=== PATIENT | male | born 1965 | race Caucasian/White ===

== ENCOUNTER 2024-05-16 20:21 | Emergency (ER) | payer OTHER, SELFPAY ==
[2024-05-16 20:23] VITALS: BP 121/74; PULSE 60; RESP 18; TEMP 36.6; O2SAT 100; BMI 22.6
--- NOTE | 2024-05-16 20:34 | ED_ITS ---
Discharge Plan Disposition Patient Disposition: Home, Self-Care Condition: Good Prescriptions Prescriptions: No Action fenofibrate 160 mg tablet 160 mg PO DAILY Patient Comments: TAKE 1 TABLET BY MOUTH EVERY DAY ezetimibe 10 mg tablet 10 mg PO DAILY Patient Comments: TAKE 1 TABLET BY MOUTH EVERY DAY aspirin 81 mg tablet,delayed release (DR/EC) 81 mg PO DAILY Patient Comments: TAKE 1 TABLET BY MOUTH EVERY DAY atorvastatin 40 mg tablet 40 mg PO DAILY Patient Comments: TAKE 1 TABLET BY MOUTH EVERY DAY peg 3350-electrolytes [Golytely] 236-22.74-6.74 -5.86 gram recon soln 240 ml PO Q10M Qty: 4000 0RF Rx Instructions: at 6pm day before surgery take first dose. After mixing prep as directed, drink half of the gallon by drinking 8 ounces, or 1 cup, every 15 mins until half is remaining. refrigerate the remaining and continue clear liquids till midnight. 5-6 hours before exam, take the second dosage, 8oz every 15 mins till gone. Referrals Follow up/Referrals: Yannick Olivera MD [Staff Physician] - See instructions Ashlee Fernández APRN [Primary Care Provider] - See instructions Activity Restrictions/Add. Instructions Additional Instructions/Restrictions: You were evaluated in the emergency department today. At this time, we discussed admission versus discharge home, and since you are electing to go home I recommend very close follow-up with your primary care provider as well as with cardiology. Please return to the emergency department right away for new or worsening symptoms. As discussed, you have an incidental finding of a brain aneurysm, for which I recommend close follow-up outpatient with neurosurgery. You may call neurosurgery if you wish to schedule an appointment. Their phone number is: [phone] Clinical Impressions Clinical Impression: Syncope, Atrioventricular block, first degree, Brain aneurysm Stand Alone Forms Stand Alone Forms: Work/School Release Instructions Patient Instructions: DI for Syncope in Adults (Fainting) Print Language Print Language: Amharic Discharge ED Provider: Maya Fernandez General Adult HPI <СВЕТЛАНА Nunez - Last Filed: 05/16/24 20:53> General Chief complaint: Syncope Stated complaint: sweats, passed out x2, weakness Time Seen by Provider: 05/16/24 20:33 History of Present Illness HPI narrative: Patient presents for evaluation of syncope. Patient was at his normal baseline when he had a sudden flushing sensation and a generalized feeling of being unwell. Patient denies chest pain fever chills hemoptysis hematochezia melena headache recent illness. He felt like he might be nauseated and might have to be sick went to the bathroom but ultimately did not get sick. He came and sat back down in his recliner and continued to feel unwell call for his . Patient's observed him pass out. He was out for about a minute and when he came to he was clammy but profusely diaphoretic. EMS was called however patient initially refused transport. However approximately an hour later he had another unprovoked event with similar symptoms which was flushing feeling nauseated and ultimately syncopized again also witnessed by his . When he awoke he vomited this time again was clammy and diaphoretic. Patient has a past medical history of peripheral vascular disease status post femoral stents and is on aspirin statin. Related Data Home Medications ?Medication ?Instructions ?Recorded ?Confirmed aspirin 81 mg tablet,delayed 81 mg PO DAILY 02/16/24 05/01/24 release atorvastatin 40 mg tablet 40 mg PO DAILY 02/16/24 05/01/24 ezetimibe 10 mg tablet 10 mg PO DAILY 02/16/24 05/01/24 fenofibrate 160 mg tablet 160 mg PO DAILY 02/16/24 05/01/24 Previous Rx's ?Medication ?Instructions ?Recorded peg 3350-electrolytes 236 240 ml PO Q10M colonscopy #4,000 mL 04/13/24 gram-22.74 gram-6.74 gram-5.86 gram solution (Golytely) Allergies Allergy/AdvReac Type Severity Reaction Status Date / Time No Known Allergies Allergy Verified 05/16/24 20:47 [facility] <СВЕТЛАНА Nunez - Last Filed: 05/16/24 20:53> [facility] Disclaimer: The information contained in this section may have been updated after the patient was seen, as this information can be updated by other users. Medical History (Updated 05/16/24 @ 23:53 by Maya Fernandez DO) Traveling blood clot in leg Surgical History (Updated 05/01/24 @ 10:58 by Clotilde Bhat RN) H/O angioplasty History of placement of ear tubes Family History Other Cancer Diabetes Heart attack Social History Smoking Status: Never smoker alcohol intake: never substance use type: marijuana current occupational status: employed Travel in the last 8 weeks: None Have you lived/traveled outside [place] in past 30 days?: No Contact w/someone who lives/traveled outside US past 30 days?: No Exposure to someone with infectious disease in past 14 days?: No Do you have a fever (greater than 100.4 F or 38 C)?: No Have you tested positive for COVID-19: No Exposed to someone with COVID-19 in past 14 days?: No Do you have a sore throat?: No Do you have a cough?: No Do you have any weakness?: No Do you have any diarrhea?: No Are you experiencing any unusual bleeding?: No Do you have any muscle aches/pain?: No Do you have any abdominal pain?: No Are you experiencing loss of taste or smell?: No <СВЕТЛАНА Nunez - Last Filed: 05/16/24 20:53> ROS Obtained: Yes Systems reviewed as appropriate & no additional complaints except as documented Physical Exam <СВЕТЛАНА Nunez - Last Filed: 05/16/24 20:53> General General appearance: alert and in no apparent distress Respiratory Respiratory exam: Present normal lung sounds bilaterally Cardiovascular Cardiovascular exam: Present regular rate Neurological Exam Neurological exam: Present alert and oriented X3 Medical Decision Making <СВЕТЛАНА Nunez - Last Filed: 05/16/24 20:53> Medical Records Medical records reviewed: Yes I reviewed the patient's medical records. Screening: Per USPSTF and CDC recommendations, given the prevalence of disease in our region, it is our hospital?s policy to screen for HIV and viral Hepatitis for all patients aged 18 and over and those with ongoing risk factors. Ismael Inquiry Pt receiving controlled substance: No Vital Signs: 05/16/24 20:23 05/16/24 21:00 05/17/24 00:02 Temperature 97.8 F 97.8 F Temperature Source Oral Pulse Rate 62 63 Pulse Rate [Apical] 60 Respiratory Rate 18 16 17 Blood Pressure 118/77 119/75 Blood Pressure [Right Arm] 121/74 Blood Pressure Mean [Right Arm] 89 Blood Pressure Source Automatic Cuff 02 Sat by Pulse Oximetry 100 97 Oxygen Delivery Method Room Air Room Air Lab Data Lab results reviewed: Yes I reviewed the patient's lab results. Lab Results 05/16/24 20:49: WBC 11.4 H, RBC 5.64, Hgb 11.3 L, Hct 35.4 L, MCV 62.8 L, MCH 20.0 L, MCHC 31.9, RDW 17.4, Plt Count 216, MPV 9.4, Neut % (Auto) 76.5, Lymph % (Auto) 14.2, Garza % (Auto) 7.0, Eos % (Auto) 1.4, Baso % (Auto) 0.4, Neut # (Auto) 8.7 H, Lymph # (Auto) 1.6, Garza # (Auto) 0.8, Eos # (Auto) 0.2, Baso # (Auto) 0.1, D-Dimer 0.74 H, Sodium 140, Potassium 4.3, Chloride 104, Carbon Dioxide 28, Anion Gap 12.3, BUN 31 H, Creatinine 1.20, Estimated Creat Clear 60, Estimated GFR 62, Est GFR ( Amer) 75, Glucose 115 H, Calcium 9.5, Magnesium 1.9, Total Bilirubin 0.4, AST 47, ALT 26, Alkaline Phosphatase 37 L, Troponin I < 0.01, Total Protein 6.5, Albumin 4.3, Globulin 2.2, A lbumin/Globulin Ratio 2.0 H, HIV Ag/Ab Combo Qual Negative 05/16/24 23:10: Troponin I < 0.01 05/16/24 20:49 05/16/24 20:49 Orders (Tests/Meds): ED MEDICATIONS Discontinued Medications Generic Name Dose Route Start Last Admin Trade Name Freq PRN Reason Stop Dose Admin Acetaminophen 1,000 mg 05/16/24 20:42 05/16/24 20:56 Acetaminophen 1,000mg/100ml Vial IV 05/16/24 20:43 1,000 mg ONCE ONE Administration Sodium Chloride 1,000 mls @ 999 mls/hr 05/16/24 20:42 05/16/24 20:56 Sod Chlor 0.9% 1000ml Bag IV 05/16/24 21:42 999 mls/hr .Q1H1M ONE Administration Iopamidol 160 ml 05/16/24 22:23 05/16/24 22:24 Iopamidol-370 (76%);100ml Bottle IV 05/16/24 22:24 160 ml ONCE ONE Administration Ondansetron HCl 4 mg 05/16/24 20:42 05/16/24 20:56 Ondansetron 4mg/2ml Vial IV 05/16/24 20:43 4 mg ONCE ONE Administration Sodium Chloride 100 ml 05/16/24 22:23 05/16/24 22:24 0.9 % Sodium Chloride 50 Ml Vial IV 05/16/24 22:24 100 ml ONCE ONE Administration Sodium Chloride 10 ml 05/16/24 22:23 05/16/24 22:24 Sodium Chloride 0.9% 10ml Syr (Rad Only) IV 06/15/24 22:22 10 ml NEEDED PRN Administration Maintain IV Site ORDERS Category Date Time Status CT angio abdomen pelvis Stat Cat Scan 05/16/24 21:[address] angio chest PE protocol Stat Cat Scan 05/16/24 21:[address] angio head Stat Cat Scan 05/16/24 21:[address] angio neck Stat Cat Scan 05/16/24 21:[address] head/brain wo con Stat Cat Scan 05/16/24 21:48 Completed Chest XR 2 view (NOT portable) [XR chest 2V] Stat Exams 05/16/24 20:42 Completed CBC w/Auto Diff [Complete Blood Count Auto Diff] Stat Lab 05/16/24 20:49 Completed CMP [Comprehensive Metabolic Panel] Stat Lab 05/16/24 20:49 Completed D-Dimer Stat Lab 05/16/24 20:49 Completed HIV Combo Stat Lab 05/16/24 20:49 Completed Hep C Ab with Reflex to RNA Stat Lab 05/16/24 20:49 Received Magnesium Stat Lab 05/16/24 20:49 Completed Trop I [Troponin I] Stat Lab 05/16/24 20:49 Completed Troponin I Q3H Lab 05/16/24 23:10 Completed Medical Decision Narrative: In summary patient is a 58-year-old male who presents to the emergency department for evaluation of unprovoked syncope. Patient is initially normotensive on arrival with a blood pressure 121/74 his heart rate was in the mid 50s at the time of my bedside exam and he was breathing 18 times a minute satting at 100% on room air upon arrival, afebrile. Physical exam is unremarkable nonfocal including Rosendo Coma Score 15 patient is awake alert and oriented person place and circumstance he has no nuchal rigidity no C-spine tenderness breath sounds are clear and equal bilaterally to the bases without adventitious sounds, heart sounds are S1-S2 patient appears to be normal sinus rhythm on the bedside monitor abdominal exam is benign with no tenderness on palpation no rebound or guarding no rigidity normal bowel sounds.. Differential diagnosis includes vasovagal syncope versus cardiogenic syncope versus arrhythmia versus occult illness etc. Initial workup will be conducted with hematologic labs twelve-lead EKG plain film chest x-ray. Angio of the head and neck was considered however patient has no focal neurologic symptoms or red flag to suggest a central neurologic cause currently.. Initial interventions include crystalloid bolus Zofran. Initial workup initiated and pending at the time of handoff to Dr. Fernandez at 2100 hrs. <Maya Fernandez, DO - Last Filed: 05/17/24 00:17> Vital Signs: 05/16/24 20:23 05/16/24 21:00 05/17/24 00:02 Temperature 97.8 F 97.8 F Temperature Source Oral Pulse Rate 62 63 Pulse Rate [Apical] 60 Respiratory Rate 18 16 17 Blood Pressure 118/77 119/75 Blood Pressure [Right Arm] 121/74 Blood Pressure Mean [Right Arm] 89 Blood Pressure Source Automatic Cuff 02 Sat by Pulse Oximetry 100 97 Oxygen Delivery Method Room Air Room Air Lab Data Lab Results 05/16/24 20:49: WBC 11.4 H, RBC 5.64, Hgb 11.3 L, Hct 35.4 L, MCV 62.8 L, MCH 20.0 L, MCHC 31.9, RDW 17.4, Plt Count 216, MPV 9.4, Neut % (Auto) 76.5, Lymph % (Auto) 14.2, Garza % (Auto) 7.0, Eos % (Auto) 1.4, Baso % (Auto) 0.4, Neut # (Auto) 8.7 H, Lymph # (Auto) 1.6, Garza # (Auto) 0.8, Eos # (Auto) 0.2, Baso # (Auto) 0.1, D-Dimer 0.74 H, Sodium 140, Potassium 4.3, Chloride 104, Carbon Dioxide 28, Anion Gap 12.3, BUN 31 H, Creatinine 1.20, Estimated Creat Clear 60, Estimated GFR 62, Est GFR ( Amer) 75, Glucose 115 H, Calcium 9.5, Magnesium 1.9, Total Bilirubin 0.4, AST 47, ALT 26, Alkaline Phosphatase 37 L, Troponin I < 0.01, Total Protein 6.5, Albumin 4.3, Globulin 2.2, A lbumin/Globulin Ratio 2.0 H, HIV Ag/Ab Combo Qual Negative 05/16/24 23:10: Troponin I < 0.01 Orders (Tests/Meds): ED MEDICATIONS Discontinued Medications Generic Name Dose Route Start Last Admin Trade Name Freq PRN Reason Stop Dose Admin Acetaminophen 1,000 mg 05/16/24 20:42 05/16/24 20:56 Acetaminophen 1,000mg/100ml Vial IV 05/16/24 20:43 1,000 mg ONCE ONE Administration Sodium Chloride 1,000 mls @ 999 mls/hr 05/16/24 20:42 05/16/24 20:56 Sod Chlor 0.9% 1000ml Bag IV 05/16/24 21:42 999 mls/hr .Q1H1M ONE Administration Iopamidol 160 ml 05/16/24 22:23 05/16/24 22:24 Iopamidol-370 (76%);100ml Bottle IV 05/16/24 22:24 160 ml ONCE ONE Administration Ondansetron HCl 4 mg 05/16/24 20:42 05/16/24 20:56 Ondansetron 4mg/2ml Vial IV 05/16/24 20:43 4 mg ONCE ONE Administration Sodium Chloride 100 ml 05/16/24 22:23 05/16/24 22:24 0.9 % Sodium Chloride 50 Ml Vial IV 05/16/24 22:24 100 ml ONCE ONE Administration Sodium Chloride 10 ml 05/16/24 22:23 05/16/24 22:24 Sodium Chloride 0.9% 10ml Syr (Rad Only) IV 06/15/24 22:22 10 ml NEEDED PRN Administration Maintain IV Site ORDERS Category Date Time Status CT angio abdomen pelvis Stat Cat Scan 05/16/24 21:[address] angio chest PE protocol Stat Cat Scan 05/16/24 21:[address] angio head Stat Cat Scan 05/16/24 21:[address] angio neck Stat Cat Scan 05/16/24 21:[address] head/brain wo con Stat Cat Scan 05/16/24 21:48 Completed Chest XR 2 view (NOT portable) [XR chest 2V] Stat Exams 05/16/24 20:42 Completed CBC w/Auto Diff [Complete Blood Count Auto Diff] Stat Lab 05/16/24 20:49 Completed CMP [Comprehensive Metabolic Panel] Stat Lab 05/16/24 20:49 Completed D-Dimer Stat Lab 05/16/24 20:49 Completed HIV Combo Stat Lab 05/16/24 20:49 Completed Hep C Ab with Reflex to RNA Stat Lab 05/16/24 20:49 Received Magnesium Stat Lab 05/16/24 20:49 Completed Trop I [Troponin I] Stat Lab 05/16/24 20:49 Completed Troponin I Q3H Lab 05/16/24 23:10 Completed ECG Data Tracing #1: I reviewed this ECG and interpreted as documented below: Normal sinus rhythm with a first-degree AV block. VT interval is [address] changes concerning for ischemia. Normal axis. ECG initial impression date: 05/16/24 ECG initial impression time: 20:50 Medical Decision Narrative: In summary patient is a 58-year-old male who presents to the emergency department for evaluation of unprovoked syncope. Patient is initially normotensive on arrival with a blood pressure 121/74 his heart rate was in the mid 50s at the time of my bedside exam and he was breathing 18 times a minute satting at 100% on room air upon arrival, afebrile. Physical exam is unremarkable nonfocal including Early Branch Coma Score 15 patient is awake alert and oriented person place and circumstance he has no nuchal rigidity no C-spine tenderness breath sounds are clear and equal bilaterally to the bases without adventitious sounds, heart sounds are S1-S2 patient appears to be normal sinus rhythm on the bedside monitor abdominal exam is benign with no tenderness on palpation no rebound or guarding no rigidity normal bowel sounds.. Differential diagnosis includes vasovagal syncope versus cardiogenic syncope versus arrhythmia versus occult illness etc. Initial workup will be conducted with hematologic labs twelve-lead EKG plain film chest x-ray. Angio of the head and neck was considered however patient has no focal neurologic symptoms or red flag to suggest a central neurologic cause currently.. Initial interventions include crystalloid bolus Zofran. Initial workup initiated and pending at the time of handoff to Dr. Fernandez at 2100 hrs. Jim DO: I was consulted by the ARMAAN, and we discussed the complexity of the problems being addressed. I approved the treatment and management plan for this patient's care in the emergency department, thus performing a substantive portion of the medical decision making. I assumed total care of the patient at 2100 at time of departure of the ARMAAN. On my assessment of the patient, he is resting comfortably and has normal vital signs on cardiac telemetry with no symptoms. He states he is feeling fine. Troponins x 2 negative. D-dimer was elevated, so I did decide to obtain CT angiography from head to pelvis to rule out acute vascular issue such as PE, aortic pathology, CVA, or other concern. CT scans demonstrate an MCA aneurysm, which I notified the patient of. I advised outpatient follow-up with neurosurgery. He expressed understanding and agreement. Otherwise, no acute pathology noted. Given workup and exam reassuring, I had shared decision make with the patient and recommended admission for high risk syncope, but the patient states that he is feeling fine and would rather go home. Given this, patient will be discharged home with plan for very close outpatient follow-up. Strict return precautions were given as well as instructions for close follow-up with primary care, cardiology, and neurosurgery. Patient was discharged after all questions were answered. Critical Care <СВЕТЛАНА Nunez - Last Filed: 05/16/24 20:53> Critical Care Time Critical Care Time: No
--- NOTE | 2024-05-16 20:42 | XR_ITS ---
PROCEDURE INFORMATION: Exam: XR Chest Exam date and time: 05/16/2024 8:43 PM Age: 58 years old Clinical indication: Other: Syncope TECHNIQUE: Imaging protocol: Radiologic exam of the chest. Views: 2 views. COMPARISON: No relevant prior studies available. FINDINGS: Lungs: Unremarkable. No consolidation. Pleural spaces: Unremarkable. No pleural effusion. No pneumothorax. Heart/Mediastinum: Unremarkable. No cardiomegaly. Bones/joints: Unremarkable. IMPRESSION: No acute findings.
--- NOTE | 2024-05-16 20:48 | ECG_ITS ---
APPROVED REPORT Exam: Resting ECG HR:62 bpm ECG Measurements Heart Rate 62 AXES AL 251 P 50 QRSd 89 QRS 16 QT 399 T 31 QTc 404 Conclusion SINUS RHYTHM WITH FIRST DEGREE AV BLOCK MODERATE VOLTAGE CRITERIA FOR LVH, CONSIDER NORMAL VARIANT [MEETS CRITERIA IN ONE OF: R(aVL), S(V1), R(V5), R(V5/V6)+S(V1)] No acute STEMI Electronically signed by : JOSEFINA LEO, 05/20/2024 00:11:32
[2024-05-16] MEDS: 0.9 % SODIUM CHLORIDE 1000ML 1,000 ML 999 ML IV (20:56)
[2024-05-16] MEDS: ONDANSETRON 4MG/2ML VIAL 4 MG IV (20:56)
[2024-05-16] MEDS: ACETAMINOPHEN 1,000MG/100ML VIAL 1000 MG IV (20:56)
[2024-05-16 21:00] VITALS: BP 118/77; PULSE 62; RESP 16; O2SAT 97
[2024-05-16 21:00] LABS: Hematocrit 35.4 % (42.0-52.0); Hemoglobin 11.3 g/dL (14.1-18.0); Mean Corpuscular HGB Conc 31.9 g/dL (31.8-35.4); Mean Corpuscular Volume 62.8 fl (80-94); Red Blood Count 5.64 M/mm3 (4.60-6.20); White Blood Count 11.4 K/mm3 (4.8-10.8)
[2024-05-16 21:01] LABS: Basophils # 0.1 K/mm3 (0-0.2); Basophils % 0.4 % (0.1-2.0); Eosinophils # 0.2 K/mm3 (0.0-0.4); Eosinophils % 1.4 % (0.1-12.0); Lymphocytes # 1.6 K/mm3 (0.7-4.5); Lymphocytes % 14.2 % (10-50); Mean Platelet Volume 9.4 fl (7.4-10.4); Monocytes # 0.8 K/mm3 (0.1-1.0); Neutrophils # 8.7 K/mm3 (1.8-7.8); Neutrophils % 76.5 % (37.0-80.0); Platelet Count 216 K/mm3 (142-424); Red Cell Distribution Width 17.4 % (11.5-17.5)
[2024-05-16 21:13] LABS: Alanine Aminotransferase 26 U/L (12-78); Albumin Level 4.3 g/dl (3.5-5.0); Alkaline Phosphatase 37 U/L (38-126); Aspartate Amino Transferase 47 U/L (17-59); Bilirubin,Total 0.4 mg/dl (0.2-1.3); Blood Urea Nitrogen 31 mg/dl (9-20); Calcium 9.5 mg/dl (8.4-10.2); Carbon Dioxide 28 mmol/L (22.0-30.0); Chloride 104 mmol/L (98-107); Creatinine Clearance Estimated 60 mL/min (50-200); Estimated Glomerular Filt Rate 62 ml/min (>60); GFR (African American) 75 ML/MIN (>60); Globulin 2.2 g/dL (1.3-3.2); Glucose 115 mg/dl (74-100); Magnesium 1.9 mg/dl (1.6-2.3); Sodium 140 mmol/L (136-145); Total Protein,Serum 6.5 g/dl (6.3-8.2)
[2024-05-16 21:18] LABS: D-Dimer 0.74 ug/mL (0.0-0.5)
[2024-05-16 21:28] LABS: Troponin I < 0.01 ng/ml (0.00-0.034)
[2024-05-16 21:30] LABS: Anion Gap 12.3 mEq/L (5-15); Potassium 4.3 mmoL/L (3.5-5.1)
--- NOTE | 2024-05-16 21:48 | CT_ITS ---
PROCEDURE INFORMATION: Exam: CTA Head With Contrast, Arteriography Exam date and time: 05/16/2024 10:12 PM Age: 58 years old Clinical indication: Other: Syncope; Additional info: Recurrent syncope, abd pain/n/v, elevated d-dimer TECHNIQUE: Imaging protocol: Computed tomographic angiography of the head with contrast. Exam focused on the arteries. 3D rendering (Not supervised by radiologist): MIP and/or 3D reconstructed images were created by the technologist. Radiation optimization: All CT scans at this facility use at least one of these dose optimization techniques: automated exposure control; mA and/or kV adjustment per patient size (includes targeted exams where dose is matched to clinical indication); or iterative reconstruction. Contrast material: ISOVUE; Contrast volume: 80 ml; Contrast route: INTRAVENOUS (IV); COMPARISON: CT HEAD/BRAIN WO CON 05/16/2024 10:10 PM FINDINGS: ANTERIOR CIRCULATION: Right internal carotid artery: Intracranial segment is patent with no significant stenosis. No aneurysm. Right middle cerebral artery: No occlusion or significant stenosis. No aneurysm. Right anterior cerebral artery: Hypoplastic right A1 Left internal carotid artery: Intracranial segment is patent with no significant stenosis. No aneurysm. Left middle cerebral artery: Left MCA bifurcation saccular aneurysm measures 6.7 mm in length by 4.4 mm in diameter as measured in the coronal plane. Left anterior cerebral artery: No occlusion or significant stenosis. No aneurysm. POSTERIOR CIRCULATION: Right vertebral artery: No occlusion or significant stenosis. No aneurysm. Left vertebral artery: Hypoplastic left vertebral artery Basilar artery: No occlusion or significant stenosis. No aneurysm. Right posterior cerebral artery: origin right P1 Left posterior cerebral artery: No occlusion or significant stenosis. No aneurysm. Brain: No definite mass, mass effect, or midline shift. Cerebral ventricles: No ventriculomegaly. Bones/joints: Unremarkable. No acute fracture. Soft tissues: Unremarkable. IMPRESSION: 1. Incidental distal left MCA unruptured saccular aneurysm measures 6.7 mm length by 4 mm in diameter. Advise nonemergent referral to appropriate neurovascular provider. 2. No large vessel occlusion PROCEDURE INFORMATION: Exam: CTA Neck With Contrast Exam date and time: 05/16/2024 10:12 PM Age: 58 years old Clinical indication: Other: Syncope; Additional info: Recurrent syncope, abd pain/n/v, elevated d-dimer TECHNIQUE: Imaging protocol: Computed tomographic angiography of the neck with contrast. Exam focused on the cervical segments of the vasculature. 3D rendering (Not supervised by radiologist): MIP and/or 3D reconstructed images were created by the technologist. Radiation optimization: All CT scans at this facility use at least one of these dose optimization techniques: automated exposure control; mA and/or kV adjustment per patient size (includes targeted exams where dose is matched to clinical indication); or iterative reconstruction. Contrast material: ISOVUE; Contrast volume: 80 ml; Contrast route: INTRAVENOUS (IV); COMPARISON: CT ANGIO HEAD 05/16/2024 10:12 PM FINDINGS: Right common carotid artery: No stenosis. No dissection or occlusion. Right internal carotid artery: No stenosis of the extracranial segment. No dissection or occlusion. Right external carotid artery: No occlusion or stenosis of the origin. Left common carotid artery: No stenosis. No dissection or occlusion. Left internal carotid artery: No stenosis of the extracranial segment. No dissection or occlusion. Left external carotid artery: No occlusion or stenosis of the origin. Right vertebral artery: No stenosis. No dissection or occlusion. Left vertebral artery: Hypoplastic left vertebral artery Soft tissues: Normal. No significant soft tissue swelling. Bones/joints: No acute fracture. Other findings: Mild mixed density plaquing bilateral proximal ICA, but no measurable stenosis greater than 30 % IMPRESSION: 1. Mild proximal ICA plaquing bilaterally, but no significant stenosis. 2. Otherwise, negative examination. REFERENCES: NASCET CRITERIA. The degree of stenosis in the cervical segment of the internal carotid artery is based on NASCET criteria. Normal is no stenosis. Mild is less than 50% stenosis. Moderate is 50-69% stenosis. Severe is 70% to 99% stenosis. Total occlusion is no detectable patent lumen.
--- NOTE | 2024-05-16 21:48 | CT_ITS ---
PROCEDURE INFORMATION: Exam: CT Head Without Contrast Exam date and time: 05/16/2024 10:10 PM Age: 58 years old Clinical indication: Other: Syncope; Additional info: Recurrent syncope, abd pain/n/v, elevated d-dimer TECHNIQUE: Imaging protocol: Computed tomography of the head without contrast. Radiation optimization: All CT scans at this facility use at least one of these dose optimization techniques: automated exposure control; mA and/or kV adjustment per patient size (includes targeted exams where dose is matched to clinical indication); or iterative reconstruction. COMPARISON: No relevant prior studies available. FINDINGS: Brain: No hemorrhage. Unremarkable white matter. No mass effect. Cerebral ventricles: No ventriculomegaly. Paranasal sinuses: Visualized sinuses are unremarkable. No fluid levels. Mastoid air cells: Visualized mastoid air cells are well aerated. Bones: Unremarkable. No acute fracture. Soft tissues: Unremarkable. IMPRESSION: No acute intracranial abnormality.
--- NOTE | 2024-05-16 21:48 | CT_ITS ---
PROCEDURE INFORMATION: Exam: CTA Abdomen and Pelvis With Contrast Exam date and time: 05/16/2024 10:16 PM Age: 58 years old Clinical indication: Abdominal pain; Generalized; Additional info: Recurrent syncope, abd pain/n/v, elevated d-dimer TECHNIQUE: Imaging protocol: Computed tomographic angiography of the abdomen and pelvis with contrast. Exam focused on the arteries. 3D rendering (Not supervised by radiologist): MIP and/or 3D reconstructed images were created by the technologist. Radiation optimization: All CT scans at this facility use at least one of these dose optimization techniques: automated exposure control; mA and/or kV adjustment per patient size (includes targeted exams where dose is matched to clinical indication); or iterative reconstruction. Contrast material: ISOVUE; Contrast volume: 80 ml; Contrast route: INTRAVENOUS (IV); COMPARISON: CT ANGIO CHEST PE PROTOCOL 05/16/2024 10:16 PM FINDINGS: Aorta: Moderate atherosclerotic calcification in the distal aorta. No evidence of aneurysm or dissection. Celiac trunk and mesenteric arteries: No occlusion or significant stenosis. Renal arteries: No occlusion or significant stenosis. Right iliac arteries: No occlusion or significant stenosis. Left iliac arteries: Patent left common iliac artery stent. Liver: No mass. Gallbladder and biliary ducts: Unremarkable. No calcified stones. No ductal dilation. Pancreas: Unremarkable. No mass. No ductal dilation. Spleen: Unremarkable. No splenomegaly. Adrenal glands: Unremarkable. No mass. Kidneys and ureters: Unremarkable. No solid mass. No hydronephrosis. Stomach and bowel: Unremarkable. No obstruction. No mucosal thickening. Appendix: No evidence of appendicitis. Intraperitoneal space: Unremarkable. No free air. No significant fluid collection. Lymph nodes: Unremarkable. No enlarged lymph nodes. Urinary bladder: Unremarkable. No mass. Reproductive: Unremarkable as visualized. Bones/joints: [id number] degenerative changes throughout the lower spine. No vertebral body compression. No acute fracture Soft tissues: Unremarkable. IMPRESSION: No acute abnormality. [id number] osseous and atherosclerotic changes as noted.
--- NOTE | 2024-05-16 21:48 | CT_ITS ---
PROCEDURE INFORMATION: Exam: CTA Chest With Contrast Exam date and time: 05/16/2024 10:16 PM Age: 58 years old Clinical indication: Other: Elevated d-dimer; Additional info: Recurrent syncope, abd pain/n/v, elevated d-dimer TECHNIQUE: Imaging protocol: Computed tomographic angiography of the chest with contrast. Exam focused on the arteries. 3D rendering (Not supervised by radiologist): MIP and/or 3D reconstructed images were created by the technologist. Radiation optimization: All CT scans at this facility use at least one of these dose optimization techniques: automated exposure control; mA and/or kV adjustment per patient size (includes targeted exams where dose is matched to clinical indication); or iterative reconstruction. Contrast material: ISOVUE; Contrast volume: 80 ml; Contrast route: INTRAVENOUS (IV); COMPARISON: CR XR CHEST 2V 05/16/2024 8:43 PM FINDINGS: Pulmonary arteries: Normal. No pulmonary emboli. Aorta: Unremarkable. No aortic aneurysm. No aortic dissection. Lungs: Unremarkable. No consolidation. No masses. Pleural spaces: Unremarkable. No pneumothorax. No pleural effusion. Heart: Unremarkable. No cardiomegaly. No pericardial effusion. Lymph nodes: Unremarkable. No enlarged lymph nodes. Bones/joints: Unremarkable. No acute fracture. Soft tissues: Unremarkable. IMPRESSION: No acute findings.
[2024-05-16 22:17] LABS: HIV Combo NEGATIVE (Negative)
[2024-05-16] MEDS: SODIUM CHLORIDE 0.9% 10ML SYR (RAD ONLY) 10 ML IV (22:24)
[2024-05-16] MEDS: 0.9 % SODIUM CHLORIDE 50 ML VIAL 100 ML IV (22:24)
[2024-05-16] MEDS: IOPAMIDOL-370 (76%);100ML BOTTLE 160 ML IV (22:24)
[2024-05-16 23:40] LABS: Troponin I < 0.01 ng/ml (0.00-0.034)
[2024-05-17 00:02] VITALS: BP 119/75; PULSE 63; RESP 17; TEMP 36.6; O2SAT 99
[2024-05-19 07:08] LABS: HCV Ab Non Reactive (Non Reactive)
== END 2024-05-17 00:08 | disposition home or self-care (01) ==
PROVIDERS: Physician Assistant; Emergency Provider Emergency Medicine; PCP Nurse Practitioner
DX: I67.1 Cerebral aneurysm, nonruptured (principal); I44.0 Atrioventricular block, first degree; R55 Syncope and collapse; R11.2 Nausea with vomiting, unspecified; R23.1 Pallor
CPT/HCPCS: 70450; 70496; 70498; 71046; 71275; 74174; 80053; 83735; 84484; 85025; 85378; 86803; 87389; 93005; 96361; 96374; 96375; 99285; J0131; J2405; J7030; Q9967